=== PATIENT | female | born 1975 | race Caucasian/White ===

== ENCOUNTER 2022-05-21 08:25 | Outpatient (REF) | payer OTHER, SELFPAY ==
[2022-05-21 08:38] LABS: MANUAL DIFF FLAG NO
[2022-05-21 08:58] LABS: Basophils Absolute Auto 0.1 X10*3/uL (0.0-0.2); Basophils Percent Auto 1.3 % (0-2); Eosinophils Absolute Auto 0.1 X10*3/uL (0.0-0.4); Eosinophils Percent Auto 2.3 % (0-4); Hematocrit 40.1 % (37.0-47.0); Hemoglobin 13.5 g/dl (12.0-16.0); Imm Gran Abs Auto 0.01 X10*3/uL (0.00-0.03); Imm Gran Pct Auto 0.2 % (0.0-0.4); Lymphocytes Absolute Auto 1.7 X10*3/uL (1.2-4.9); Lymphocytes Percent Auto 31.7 % (20-40); Mean Corpuscular HGB Conc 33.7 g/dl (31.0-35.0); Mean Corpuscular Hemoglobin 29.7 pg (27.0-33.0); Mean Corpuscular Volume 88.1 fL (80.0-98.0); Mean Platelet Volume 8.7 fL (9.4-12.3); Monocytes Absolute Auto 0.5 X10*3/uL (0.1-1.2); Monocytes Percent Auto 8.8 % (2-11); Neutrophils Absolute Auto 2.9 x10*3/uL (2.0-8.3); Neutrophils Percent Auto 55.7 % (45-73); Platelet Count 302 X10*3/uL (160-400); Red Blood Count 4.55 X10*6/uL (4.20-5.50); Red Cell Distribution Width 12.6 % (11.0-16.0); White Blood Count 5.2 X10*3/uL (4.8-10.8)
[2022-05-21 09:29] LABS: Alanine Aminotransferase 18 U/L (0-31); Albumin Level 4.1 g/dL (3.5-5.0); Alkaline Phosphatase 63 U/L (39-117); Anion Gap 14 (12-20); Aspartate Amino Transferase 20 U/L (5-31); Bilirubin Total 0.5 mg/dL (0.0-1.0); Blood Urea Nitrogen 10 mg/dL (9-16); Calcium 9.4 mg/dL (8.4-10.2); Carbon Dioxide 27 mmol/L (22-29); Chloride 104 mmol/L (96-108); Cholesterol 167 mg/dL; Estimated Glomerular Filt Rate > 60; Glucose Fasting 93 mg/dL (60-99); HDL Cholesterol 49 mg/dL; LDL Cholesterol Calculated 110 mg/dl; Potassium 4.6 mmol/L (3.3-5.1); Sodium 140 mmol/L (135-145); Total Protein 7.2 g/dL (6.5-8.0); Triglycerides 44 mg/dL
[2022-05-21 09:53] LABS: TSH reflex Free T4 1.11 uIU/mL (0.32-4.0)
== END 2022-05-21 08:26 | disposition home or self-care (01) ==
LOC: HO.LAB 08:25
PROVIDERS: Visit Provider Nurse Practitioner Family
DX: Z00.00 Encounter for general adult medical examination without abnormal findings (principal)
CPT/HCPCS: 36415; 80053; 80061; 84443; 85025

== ENCOUNTER → 2022-07-13 08:22 | Outpatient (BNVA) | payer OTHER, SELFPAY | PROVIDERS: Visit Provider Internal Medicine Endocrinology, Diabetes & Metabolism | DX: E66.9 Obesity, unspecified (principal); Z68.39 Body mass index [BMI] 39.0-39.9, adult | CPT/HCPCS: 99202 ==

== ENCOUNTER → 2022-08-17 11:53 | Outpatient (BNVA) | payer OTHER, SELFPAY | PROVIDERS: PCP Nurse Practitioner Family; Visit Provider Dietitian, Registered | DX: E66.9 Obesity, unspecified (principal); Z68.41 Body mass index [BMI] 40.0-44.9, adult | CPT/HCPCS: 97802 ==

== ENCOUNTER → 2023-01-11 15:47 | Outpatient (BNVA) | payer OTHER, SELFPAY | PROVIDERS: PCP Nurse Practitioner Family; Visit Provider Internal Medicine Endocrinology, Diabetes & Metabolism | DX: E66.9 Obesity, unspecified (principal); Z68.41 Body mass index [BMI] 40.0-44.9, adult | CPT/HCPCS: 99212 ==

== ENCOUNTER → 2023-02-27 10:03 | Outpatient (BNVA) | payer OTHER, SELFPAY | PROVIDERS: Visit Provider Dietitian, Registered | DX: E66.9 Obesity, unspecified (principal); Z71.3 Dietary counseling and surveillance | CPT/HCPCS: 97803 ==

== ENCOUNTER 2023-03-19 15:38 | Outpatient (AMB) | payer OTHER, SELFPAY ==
[2023-03-19 15:54] VITALS: BP 118/70; PULSE 89; RESP 13; TEMP 37.2; O2SAT 97; BMI 41.0
--- NOTE | 2023-03-19 15:54 | A.OFFPC_ITS ---
Vital Signs 03/19/23 15:54 Height 5 ft 1 in Weight 217 lb 2 oz BMI 41.0 BP 118/70 Blood Pressure Location Lt brachial Position Sitting Respiration 13 Pulse 89 Pulse Source Pulse Oximeter Temp 98.9 F Temp Source Oral Pulse Oximetry (%) 97 Oxygen Delivery Method Room Air Intake Visit Reasons: R heel pain Intake Note: Patient is here today due to the possibility of having Achilles tendonitis of the R heal. Patient states she made this appointment about 6 weeks ago and she was in so much pain she went to the urgent care. Urgent care referred patient for physical therapy and patient reports that she is not able to get into an appointment until April. Centrifuge Operator Required: No Accompanied by: Child Allergies medical tape Adverse Reaction (Intermediate, Uncoded 03/19/23 15:58) Blister Tobacco use date assessed: 03/19/23 Dental Screening Dental Screen Date: 03/19/23 Did you have a dental visit in the last 12 months?: Yes Did you have a dental problem in the last 6 months where you did not have access to dental care?: No Was dental information given to patient?: Patient has dentist HPI R heel pain HPI Details New patient/Transfer of Care from [place] Acute issue(s): R heel pain x2 months -Sometimes she wears socks/inserts for it which provides some relief. PMHx: Depression with anxiety. 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 [place] Current occupational exposures/hazards: No Cognitive needs: No Hearing needs: No Vision needs: Yes Review of Systems Const Denies chills, Denies fatigue, Denies fever(s), Denies headache(s) and Denies weakness ENT Denies dizziness and Denies headache(s) Card Denies chest pain, Denies lightheadedness, Denies dyspnea and Denies other (Palpitations) Resp Denies cough, Denies dyspnea, Denies wheezing and Denies other ( shortness of breath) Musc Denies numbness and Denies tingling Neuro Denies dizziness, Denies headache(s), Denies numbness, Denies tingling, Denies paresthesias and Denies weakness Psych Denies anxiety and Denies depression Endo Denies fatigue Aller/Immun Denies wheezing Physical exam (Primary Care) Vital Signs: Last Vital Signs Temp 98.9 F 03/19/23 15:54 Pulse 89 03/19/23 15:54 Resp 13 03/19/23 15:54 BP 118/70 03/19/23 15:54 Pulse Ox 97 03/19/23 15:54 Oxygen Delivery Method Room Air 03/19/23 15:54 BMI result Body Mass Index 41.0 Tobacco/Smoking Status: Tobacco use Status Tobacco use date assessed 03/19/23 03/19/23 15:59 Patient Tobacco Use Status Never used Tobacco 03/19/23 15:59 e-Cigarette/Vaping Use Never Used 03/19/23 15:59 Const General: no acute distress and well developed Nutritional Appearance: obese morbidly obese Orientation/consciousness: patient oriented x3 HENMT Head: Yes normocephalic and Yes atraumatic Eyes General: appearance normal, both eyes and all related structures Pupils: Equal, round and reactive pupils present EOM: EOMs intact bilaterally Resp Effort & Inspection: normal respiratory effort Auscultation: clear to auscultation bilaterally Cardio Rate: regular rate Rhythm: regular rhythm Heart sounds: S1 normal heart sound present, S2 normal heart sound present, no gallops, no murmurs and no rubs Neuro General: patient oriented x3 and gait normal Cranial nerves: Yes Equal, round and reactive pupils present Psych Affect: normal affect Assessment and Plan Assessment & Plan (1) Pain of right heel: Code(s): M79.671 - Pain in right foot Plan: Achilles tendinitis Demonstrated gentle stretches She will see use ice/heat Using heel cup and I advised that she elevate this further Will get her a sooner appointment with physical therapy (2) Irregular periods: Code(s): N92.6 - Irregular menstruation, unspecified Plan: Possible perimenopause Check labs (3) Depression with anxiety: Code(s): F41.8 - Other specified anxiety disorders Plan: Will ask the nurse navigator to help refer her to therapist Orders: Orders PT Evaluation and Treatment Today M76.60 - Achilles tendinitis, unspecified leg Comprehensive [place]. Panel Fast Today F41.8 - Other specified anxiety disorders, Z00.00 - Encounter for general adult medical examination without abnormal findings Lutenizing Hormone Today N92.6 - Irregular menstruation, unspecified Lipid Panel Today F41.8 - Other specified anxiety disorders, Z00.00 - Encounter for general adult medical examination without abnormal findings TSH reflex Free T4 Today F41.8 - Other specified anxiety disorders, Z00.00 - Encounter for general adult medical examination without abnormal findings Microalbumin, Random (w Creat) Today F41.8 - Other specified anxiety disorders, I10 - Essential (primary) hypertension Complete Blood Count Auto Diff Today F41.8 - Other specified anxiety disorders, Z00.00 - Encounter for general adult medical examination without abnormal findings UA and rflx microscopic Today F41.8 - Other specified anxiety disorders, Z00.00 - Encounter for general adult medical examination without abnormal findings Follicle Stimulating Hormone Today N92.6 - Irregular menstruation, unspecified Referrals Nurse Navigator Referral F41.8 - Other specified anxiety disorders Medications: Discontinued semaglutide (weight loss) (Elizabeth) administer weeks 1 through 4 of therapy Discontinued Reason: Patient no longer taking 0.25 mg (0.5 mL) subcut QWEEK 2 mL 4RF Coding Level of Care Code Est Pt Level 4 (36442) Diagnoses Pain of right heel M79.671 Irregular periods N92.6 Depression with anxiety F41.8
== END 2023-03-19 17:02 | disposition home or self-care (01) ==
PROVIDERS: Visit Provider Family Medicine
DX: M79.671 Pain in right foot (principal); N92.6 Irregular menstruation, unspecified; F41.8 Other specified anxiety disorders
CPT/HCPCS: 99214

== ENCOUNTER 2023-04-01 09:28 | Outpatient (REF) | payer OTHER, SELFPAY ==
[2023-04-01 11:12] LABS: MANUAL DIFF FLAG NO
[2023-04-01 11:51] LABS: Appearance Urine Clear; Color Urine Yellow; Glucose Urine UA Negative (Negative); Leukocyte Esterase Urine Trace (Negative); Nitrite Urine Negative (Negative); Specific Gravity - Urine 1.015 (1.005-1.025); UMIC TRIGGER UA YES; Urine Blood Large (3+) (Negative); Urine Ketones Negative (Negative); Urine Protein Trace mg/dL (Neg-Trace)
[2023-04-01 11:57] LABS: Bacteria Urine 1+ (None Seen); Basophils Absolute Auto 0.1 X10*3/uL (0.0-0.2); Basophils Percent Auto 0.6 % (0-2); Eosinophils Absolute Auto 0.2 X10*3/uL (0.0-0.4); Eosinophils Percent Auto 2.8 % (0-4); Hematocrit 41.5 % (37.0-47.0); Hemoglobin 13.7 g/dl (12.0-16.0); Hyaline Casts Urine 0-2 /LPF (0-2); Imm Gran Abs Auto 0.01 X10*3/uL (0.00-0.03); Imm Gran Pct Auto 0.1 % (0.0-0.4); Lymphocytes Absolute Auto 2.2 X10*3/uL (1.2-4.9); Mean Corpuscular Hemoglobin 29.5 pg (27.0-33.0); Mean Corpuscular Volume 89.2 fL (80.0-98.0); Mean Platelet Volume 9.1 fL (9.4-12.3); Monocytes Absolute Auto 0.5 X10*3/uL (0.1-1.2); Monocytes Percent Auto 6.6 % (2-11); Neutrophils Absolute Auto 4.7 x10*3/uL (2.0-8.3); Neutrophils Percent Auto 60.9 % (45-73); Platelet Count 281 X10*3/uL (160-400); RBC Urine >20 /HPF (0-2); Red Blood Count 4.65 X10*6/uL (4.20-5.50); Red Cell Distribution Width 12.7 % (11.0-16.0); White Blood Count 7.7 X10*3/uL (4.8-10.8)
[2023-04-01 13:09] LABS: Creatinine Urine 101.23 mg/dL; Microalbum/Creatinine Ratio Ur 31.6 ug/mg cr
[2023-04-01 14:15] LABS: Alanine Aminotransferase 13 U/L (0-31); Albumin Level 4.1 g/dL (3.5-5.0); Alkaline Phosphatase 69 U/L (39-117); Anion Gap 15 (12-20); Aspartate Amino Transferase 16 U/L (5-31); Bilirubin Total 0.5 mg/dL (0.0-1.0); Blood Urea Nitrogen 7 mg/dL (9-16); Calcium 9.3 mg/dL (8.4-10.2); Carbon Dioxide 22 mmol/L (22-29); Chloride 108 mmol/L (96-108); Cholesterol 164 mg/dL; Estimated Glomerular Filt Rate > 60; Glucose Fasting 81 mg/dL (60-99); HDL Cholesterol 44 mg/dL; LDL Cholesterol Calculated 103 mg/dl; Potassium 4.8 mmol/L (3.3-5.1); Sodium 140 mmol/L (135-145); Total Protein 7.5 g/dL (6.5-8.0); Triglycerides 86 mg/dL
[2023-04-01 14:26] LABS: TSH reflex Free T4 1.69 uIU/mL (0.32-4.0)
[2023-04-02 19:53] LABS: Follicle Stimulating Hormone 8.2 mIU/mL; Lutenizing Hormone 2.9 mIU/mL
[2023-04-02 23:23] LABS: Lyme Abs Screen <0.90 index
== END 2023-04-01 09:29 | disposition home or self-care (01) ==
LOC: HO.WFDLDS 09:28
PROVIDERS: Visit Provider Family Medicine
DX: Z00.00 Encounter for general adult medical examination without abnormal findings (principal); F41.8 Other specified anxiety disorders; M25.40 Effusion, unspecified joint; N92.6 Irregular menstruation, unspecified; I10 Essential (primary) hypertension
CPT/HCPCS: 36415; 80053; 80061; 81001; 82043; 83001; 83002; 84443; 85025; 86617; 86618

== ENCOUNTER 2023-05-13 07:00 | Outpatient (RCR) | payer OTHER, SELFPAY ==
--- NOTE | 2023-04-02 13:30 | MHC.PT.EP ---
[facility] [place] Office [place] Office [place] Office [address] Hattie Bustillos [address] [phone] F: [phone] F: [phone] F: [phone] F: [phone] Physical Therapy Plan of Care Date of Evaluation: Date of Surgery: Diagnosis: M76.60 Achilles tendinitis, unspecified leg date of script 03/19/[address] Beard Assessment: Pt is a RHD 47 y/o female, referred to PT for treatment of M76.60 Achilles tendinitis, unspecified leg date of script 03/19/[address] Beard. Pt expressing R > L sided onset which has been present since December>December of 2022 gradual onset following change of footwear>activity level. Pt is obese, expresses intolerance for prolonged walking, descending stairs (step to pattern), and driving due to sx in R achilles tendon. Pt expressing L LE sx have slowly started. Pt exhibits too many toes sign, weakness of core/hip abductors, decreased strength of R quadriceps, and tight gastroc>soleus complex. Poor SLS stability on the R LE> L LE. Pt is TTP R achilles insertion and bulbous tissue bulk R medially> L laterally achilles, (L LE less so). Pt exhibits bilateral LE L>R ankle edema, impaired tolerance for R SLS, decreased ability to perform an I heel raise, and impaired functional mobility for walking, stairs, and exercise participation. 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 Pt expresses she usually enjoys walking but has not been back to normal regular exercise regimen since the pandemic, slowly stopping due to ankle sx in the spring. Pt expressing she is had labs drawn during her routine physical to address concerns for recent weight gains/LE edema (family hx HTN and family hx heart disease). Of note: pt noted to become tearful/emotional at end of session due to level of frustration in regard to her sx/status. She was issued a written HEP, given education post eval, given a trial application of ROCKTAPE application to aide in low grade support/stretch to trial prior to next session. She was encouraged that therapy should aide in improvement of her symptoms and she appears to be an excellent candidate. Pt will be seen at a frequency of 2x/week x 4 weeks to meet listed goals below. Frequency and Duration: The patient will be seen 2x/week x 4 weeks Short Term Goals: 1. Pt will demonstrate R AROM DF stretch to 10 degrees. 2. Pt will demonstrate initiation of home program. 3. Pt will demonstrate improved strength R SLR (IR: fair quad control). 4. Pt will demonstrate strength hip abd 5/5. (IR: 5. Walking program 30 minutes daily with sx <3/10 R achilles as a start to get back to exercise). Clerical Aide Teacher Goals: 1. Resume walking 2 miles with sx <2/10 R>L achilles. 2. I HEP for strength/core/LE program. 3. Descend a flight of 8 inch stairs reciprocally. 4. Strength hip abd 5/5 B. 5. Rise from kneeling with no hesitation for R>L LE sx. 6. Resume dance/carla MOD I R>L LE. Treatment Plan: Modalities to reduce pain, spasms and effusion. Manual therapy to restore motion and function. Therapeutic exercise to improve strength and flexibility. Neuromuscular re-education for posture and balance. Therapeutic activities to return to functional activities of daily living. Electronically signed by: Please sign and return to therapist. Thank you for your referral.
== END 2023-10-01 13:07 | disposition home or self-care (01) ==
LOC: HO.PTWFD 07:00
PROVIDERS: PCP Family Medicine; Visit Provider Family Medicine
DX: M76.61 Achilles tendinitis, right leg (principal)
CPT/HCPCS: 97035; 97110; 97140; 97150; 97161; 97535

== ENCOUNTER 2023-05-31 13:53 | Outpatient (AMB) | payer OTHER, SELFPAY ==
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
[2023-05-31 13:59] VITALS: BP 120/68; PULSE 81; O2SAT 99; BMI 408.8
== END 2023-05-31 14:49 | disposition home or self-care (01) ==
PROVIDERS: PCP Family Medicine; Visit Provider Family Medicine
DX: Z00.00 Encounter for general adult medical examination without abnormal findings (principal); R82.90 Unspecified abnormal findings in urine; E66.9 Obesity, unspecified; Z68.41 Body mass index [BMI] 40.0-44.9, adult; N92.6 Irregular menstruation, unspecified; R31.9 Hematuria, unspecified; M67.88 Other specified disorders of synovium and tendon, other site; K59.00 Constipation, unspecified
CPT/HCPCS: 99396

== ENCOUNTER 2023-06-27 15:50 | Outpatient (REF) | payer OTHER, SELFPAY ==
--- NOTE | ~2023-06-27 | MM_ITS ---
EXAMINATION: MM SCREENING DIGITAL BREAST TOMOSYNTHESIS, BILATERAL CLINICAL INFORMATION: Screening. Asymptomatic. COMPARISON: Mammography: This is a baseline study. TECHNIQUE: Digital breast tomosynthesis is performed in both the craniocaudal and mediolateral oblique views along with computer-aided detection (CAD). Synthesized 2D images are generated from the tomosynthesis. FINDINGS: There are scattered areas of fibroglandular density (ACR BI-RADS breast composition Category b). There are no significant masses, abnormal calcifications, or other abnormalities. MM/MM tomosynthesis screening BI IMPRESSION: No mammographic evidence of malignancy. ASSESSMENT: BI-RADS BI-RADS 1 - Negative RECOMMENDATION: Routine annual mammography screening. 1 year F/U This examination should not preclude the clinical evaluation of a suspicious palpable abnormality. This patient's information was entered into a reminder system with a target due date for their next mammogram.
== END 2023-06-27 15:51 | disposition home or self-care (01) ==
LOC: HO.MAMMO 15:50
PROVIDERS: Visit Provider Family Medicine
DX: Z12.31 Encounter for screening mammogram for malignant neoplasm of breast (principal)
CPT/HCPCS: 77063; 77067

== ENCOUNTER → 2023-06-27 16:00 | Outpatient (BNV) | payer OTHER, SELFPAY | PROVIDERS: Visit Provider Radiology Diagnostic Radiology | DX: Z12.31 Encounter for screening mammogram for malignant neoplasm of breast (principal) | CPT/HCPCS: 77063; 77067 ==

== ENCOUNTER 2023-07-09 15:44 | Outpatient (AMB) | payer OTHER, SELFPAY ==
--- NOTE | 2023-07-09 15:47 | A.OFFVIS_ITS ---
Intake Vital Signs 07/09/23 15:48 Height 5 ft 1 in Weight 218 lb 11.177 oz BMI 41.3 BP 118/78 Blood Pressure Location Lt brachial Position Sitting Pulse 88 Pulse Source Pulse Oximeter Intake Visit Reasons: f/up obesity Intake Note: Patient present for Obesity follow up visit. Welding Inspector Required: No Accompanied by: Self / Same As Patient Allergies medical tape Adverse Reaction (Intermediate, Uncoded 05/31/23 14:03) Blister Medication List - Last Reconciled 07/09/23 by Arnol Hernández MD melatonin 5 mg PO BEDTIME PRN meloxicam 15 mg PO DAILY 30 days HPI HPI Comments History of Present Illness Details This is a 46-year-old female referred to endocrinology for obesity. Pt states weight gain gradual inability to lose wt. . She has used Noom and plateued , wt watchers. diets. Has tried no wt loss meds.Not seen stockroom coordinator in past 5 yrs. She denies hx of sleep apnea. Denies sx of Epi's Syndrome Menses less frqently without hot flashes . No hx of thyroid problems . Does not want bariatric surgery . 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 There is no clear endocrine etiology behind the patient's obesity. Plan is to Start Mounjaro 2.5 mg . Patient is aware this is off-label use for obesity. We went over potential side effects including nausea, vomiting and rare risk of pancreatitis. Also recommended structured weight loss clinic in [place] [facility]. Lastly also suggested possible use of Plenity. Mounjaro 2.5 mg samples given the patient lot number [id number] C expiration date 01/06/2025 Coding Level of Care Code Est Pt Level 3 (16563) Diagnoses Obesity E66.9
[2023-07-09 15:48] VITALS: BP 118/78; PULSE 88; BMI 41.3
== END 2023-07-09 16:40 | disposition home or self-care (01) ==
PROVIDERS: Visit Provider Internal Medicine Endocrinology, Diabetes & Metabolism
DX: E66.9 Obesity, unspecified (principal)
CPT/HCPCS: 99213

== ENCOUNTER → 2023-07-09 15:44 | Outpatient (BNVA) | payer OTHER, SELFPAY | PROVIDERS: Visit Provider Internal Medicine Endocrinology, Diabetes & Metabolism | DX: E66.9 Obesity, unspecified (principal); Z68.41 Body mass index [BMI] 40.0-44.9, adult | CPT/HCPCS: 99212 ==

== ENCOUNTER 2023-07-10 09:56 | Outpatient (REF) | payer OTHER, SELFPAY ==
--- NOTE | ~2023-07-10 | XR_ITS ---
EXAMINATION: XR ANKLE, RIGHT CLINICAL INFORMATION: Pain in right ankle and joints right foot. COMPARISON: None available. TECHNIQUE: AP, lateral, and mortise views of the right ankle. FINDINGS: Joint effusion. Diffuse soft tissue swelling, more prominent along the lateral aspect of the ankle. Small dorsal calcaneal spur. Faint calcific/ossific density along the posterior aspect of the talus on the lateral view of indeterminate age and etiology. Alignment preserved. XR/XR ankle RT min 3V IMPRESSION: Joint effusion. Diffuse soft tissue swelling, more prominent along the lateral aspect of the ankle. Faint calcific/ossific density along the posterior aspect of the talus on the lateral view of indeterminate age and etiology. Recommend follow-up imaging in 10-14 days if fracture is suspected. Dedicated views of the foot recommended for further evaluation.
== END 2023-07-10 09:57 | disposition home or self-care (01) ==
LOC: HO.HOSX 09:56
PROVIDERS: Visit Provider Physician Assistant
DX: M76.61 Achilles tendinitis, right leg (principal)
CPT/HCPCS: 73610; 99202

== ENCOUNTER 2023-07-10 15:10 | Outpatient (AMB) | payer OTHER, SELFPAY ==
--- NOTE | 2023-07-10 15:18 | A.OFFVIS_ITS ---
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 Patient reports noticing her pain in December of 2022, while at work during recess time. Her soreness was then followed by severe pain. She was seen at urgent care where she was given stretches to do. She also attended PT which did help however she continues to have pain and swelling. Currently wears shoe inserts and compression socks that seem to provide some relief. 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 She was seen at urgent care where she was given stretches to perform. She currently states she has pain and swelling in her Achilles which is aggravated with leg overuse and stair use. She had undergone physical therapy for her pain in the past. She is wearing shoe inserts and compressions socks which provide her mild relief. She is currently working which requires her to stand on her feet all day. 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 [place] Current occupational exposures/hazards: No Cognitive needs: No Hearing needs: No Vision needs: Yes Review of Systems Const All systems reviewed & are unremarkable except as noted in HPI and below Physical Exam Vital Signs: BMI result Body Mass Index 41.2 Const General: cooperative, healthy appearing, comfortable, no acute distress, well developed and alert Orientation/consciousness: patient oriented x3 HEENT Head: Yes normal to inspection, Yes normocephalic and Yes atraumatic Eyes General: appearance normal, both eyes and all related structures Resp Effort & Inspection: normal respiratory effort and able to speak in complete sentences Cardio Rate: regular rate Peripheral pulses: Peripheral pulses 2+ throughout GI Palpation (GI): Soft to palpation Skin Lesions: no lesions Rashes: no rashes Neuro General: patient oriented x3 Extrem Other: Right ankle: Normal to inspection. She does have significant tenderness over the Achilles tendon with palpable mass. She can planter flex and dorsi flex without pain. No deformity along the body of the achilles tendon, negative sharp. NVI. Results Reviewed Results Reviewed: Xrays were obtained in the office today and personally reviewed by me of the right ankle negative for bony abnormalities Assessment & Plan Assessment & Plan (1) Achilles tendinitis, right leg: Code(s): M76.61 - Achilles tendinitis, right leg Plan An MRI of right ankle has been ordered to further evaluate the integrity of the Achilles tendon. She was given a tall walking boot weight bearing as tolerated to help unload the tendon to help with resting. She was also given a work note to avoid any type of impact activities or running until I see her back for an MRI. Orders: Orders XR ankle RT min 3V 07/10/23 M25.571 - Pain in right ankle and joints of right foot MR ankle RT wo con 07/10/23 M76.61 - Achilles tendinitis, right leg Patient Instructions: Scribed for Jossy Cabrera PA-C, by Lorenzo Scrhader medical delivery technician, on 07/10/2023 at 3:00 PM EST. I, Jossy Cabrera PA-C, have personally reviewed and agree with the information entered by the scribe. Coding Level of Care Code New Pt Level 3 (23424) Diagnoses Achilles tendinitis, right leg M76.61
[2023-07-10 15:28] VITALS: BMI 41.2
== END 2023-07-10 15:54 | disposition home or self-care (01) ==
PROVIDERS: PCP Family Medicine; Visit Provider Physician Assistant
DX: M76.61 Achilles tendinitis, right leg (principal)
CPT/HCPCS: 99203

== ENCOUNTER 2023-07-12 09:59 | Outpatient (AMB) | payer OTHER, SELFPAY ==
--- NOTE | 2023-07-12 10:11 | A.OFFVIS_ITS ---
Intake VS Expanded 07/12/23 10:12 Height 5 ft 1 in Weight 216 lb 7.903 oz BMI 40.9 Intake Visit Reasons: Obesity/LVM Allergies medical tape Adverse Reaction (Intermediate, Uncoded 07/10/23 15:23) Blister HPI Nutrition Presentation Details Pt presents for MNT for obesity Pt reports challenges with meal planning and stress eating. Pt declined referral to mental health to discuss stress management and reports she is looking for a therapist. Meal routine , working on choosing natural foods and makin home made recipes (cinnamon bread and similar foods) fast food , med caramel latte split pea soup and pizza candy Most Recent Diabetes Results: Microalb/Creat Ratio 31.6 ug/mg cr 04/01/23 Cholesterol 164 mg/dL 04/01/23 HDL Cholesterol 44 mg/dL 04/01/23 Triglycerides 86 mg/dL 04/01/23 Creatinine 0.78 mg/dL (0.5-1.4) 04/01/23 Blood Urea Nitrogen 7 mg/dL (9-16) L 04/01/23 Sodium 140 mmol/L (135-145) 04/01/23 Potassium 4.8 mmol/L (3.3-5.1) 04/01/23 Chloride 108 mmol/L (96-108) 04/01/23 Carbon Dioxide 22 mmol/L (22-29) 04/01/23 Calcium 9.3 mg/dL (8.4-10.2) 04/01/23 AST 16 U/L (5-31) 04/01/23 ALT 13 U/L (0-31) 04/01/23 Total Protein 7.5 g/dL (6.5-8.0) 04/01/23 Albumin 4.1 g/dL (3.5-5.0) 04/01/23 PFSH Surgical History Hx of cholecystectomy Hx of section Family History Mother Lung cancer Father Diabetes Heart disease Social History Household Members: Spouse and Children Housing: Apartment Alcohol intake: current Patient Tobacco Use Status: Never used Tobacco e-Cigarette/Vaping Use: Never Used service: No Current occupational status: employed 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 Used wt : 96 kg(08/2022), 98 kg (01/2023) 98 kg (07/2023) Est kcal as per MSJ: 1850 (40% carb, 30% fat/prot) Est fluid needs: 2409 ml/d (25 ml/kg bw) Rec fiber: increase to 8-10 g per day and gradually increase to 25 g/d or as tolerated Rec Na: < 2000 mg /d Educate patient on: (R= Reviewed, V = verbalizes understanding N/R= Needs review N/A= not applicable) * Food sources of carbohydrates and serving adequate serving sizes : R , V * Difference between complex carbohydrates and simple carbohydrates, role of fiber: R, V * Differences between fats (MUFA/PUFA/saturated fats, trans fats) and food sources of various fats: NR * Food sources of sodium and salt and healthy modifications for heart health and kidney health: R N/R * Vitamins and minerals: N/R * How to interpret food labels: N/R * Healthy Plate method concept: R V * Caloric content of foods: R * Physical activity: benefits and precaution: R V * mindful eating strategies R Patient Instructions: Reduce on the snack to 2 a day no more than 20 g of carbs , choose an apple plain with cinnamon added or with 1/2 tbsp of peanut butter Read labels and compare carb/calories :choose less than 20 g carbs and less than 100 calories Keep physically active as able/medically cleared, walking goal 30 minutes 3 times a week or 150 minutes per week Coding Level of Care Code Nutr Indiv Subseq (11868) Diagnoses Obesity E66.9 Time Spent (min) 30
[2023-07-12 10:12] VITALS: BMI 40.9
== END 2023-07-12 11:14 | disposition home or self-care (01) ==
PROVIDERS: PCP Family Medicine; Visit Provider Dietitian, Registered
DX: E66.9 Obesity, unspecified (principal)

== ENCOUNTER → 2023-07-12 09:59 | Outpatient (BNVA) | payer OTHER, SELFPAY | PROVIDERS: Visit Provider Dietitian, Registered | DX: E66.9 Obesity, unspecified (principal); Z68.41 Body mass index [BMI] 40.0-44.9, adult | CPT/HCPCS: 97803 ==

== ENCOUNTER 2023-07-30 18:13 | Outpatient (REF) | payer OTHER, SELFPAY ==
--- NOTE | ~2023-07-30 | MR_ITS ---
EXAMINATION: MR ANKLE WITHOUT CONTRAST, RIGHT CLINICAL INFORMATION: Right ankle pain and swelling. Heel lump. Achilles tendinitis. COMPARISON: Right ankle radiographs dated 07/10/2023. TECHNIQUE: MRI of the ankle was performed using routine sequences on a high-field scanner. FINDINGS: BONE AND ARTICULAR CARTILAGE: Mild bony prominence at the dorsal aspect of the posterior calcaneus with a small dorsal calcaneal spur. No associated marrow edema. No acute fracture or dislocation. Mild degenerative cystic change within the posterior aspect of the lateral malleolus. No talar osteochondral lesion. ACHILLES TENDON: Thickening of the distal Achilles tendon with mildly increased T2 signal, consistent with chronic tendinosis. No measurable tear. OTHER TENDONS: Flattening/longitudinal split tearing of the peroneal brevis tendon at the level of the lateral malleolus measuring up to 2.9 cm in craniocaudal dimension, consistent with longitudinal partial tearing. Small amount of fluid within the posterior tibialis tendon sheath consistent with mild tenosynovitis. LIGAMENTS: Heterogeneity of the anterior and posterior talofibular ligaments consistent with remote sprain/partial tears. No evidence of acute ligament injury. JOINT FLUID AND SOFT TISSUES: Small amount of fluid within the retrocalcaneal bursa, consistent with minimal bursitis. Synovial recess versus ganglion cyst along the lateral aspect of the talonavicular joint measuring up to 1.5 cm in AP dimension. PLANTAR FASCIA: Intact. SINUS TARSI AND TARSAL TUNNEL: Patent. MR/MR ankle RT wo con IMPRESSION: 1. Bony prominence at the dorsal aspect of the posterior calcaneus with a small dorsal calcaneal spur. Mild distal Achilles tendinosis without a measurable tear. Minimal retrocalcaneal bursitis. 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 2. Longitudinal split tearing of the peroneal brevis tendon at the level of the lateral malleolus measuring up to 2.9 cm in craniocaudal dimension. Mild posterior tibialis tenosynovitis. 3. Remote sprain/partial tears of the anterior and posterior talofibular ligaments. No evidence of acute ligament injury. 4. Synovial recess versus ganglion cyst along the lateral aspect of the talonavicular joint measuring up to 1.5 cm.
== END 2023-07-30 18:14 | disposition home or self-care (01) ==
LOC: HO.MRI 18:13
PROVIDERS: Visit Provider Physician Assistant
DX: M76.61 Achilles tendinitis, right leg (principal)
CPT/HCPCS: 73721

== ENCOUNTER 2023-08-09 12:04 | Outpatient (AMB) | payer OTHER, SELFPAY ==
--- NOTE | 2023-08-09 11:57 | MHC.OFFVIS ---
Intake Intake Visit Reasons: tele- MRI Ankle RT review Allergies medical tape Adverse Reaction (Intermediate, Uncoded 07/10/23 15:23) Blister HPI tele- MRI Ankle RT review HPI Details Patient presents for telehealth visit right ankle MRI review. She states the right ankle is ok, she does have some occassional pain with walking. She has been using the boot, which helps the swelling , but not the pain [facility] Medical History (Updated 08/13/23 @ 06:14 by Jossy Cabrera PA-C) Ladarius's deformity of right heel Right ankle tendonitis Surgical History Hx of cholecystectomy Hx of section Family History Mother Lung cancer Father Diabetes Heart disease Social History Household Members: Spouse and Children Housing: Apartment Alcohol intake: current Patient Tobacco Use Status: Never used Tobacco e-Cigarette/Vaping Use: Never Used service: No Current occupational status: employed 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 Bony prominence at the dorsal aspect of the posterior calcaneus with a small dorsal calcaneal spur. Mild distal Achilles tendinosis without a measurable tear. Minimal retrocalcaneal bursitis. 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 2. Longitudinal split tearing of the peroneal brevis tendon at the level of the lateral malleolus measuring up to 2.9 cm in craniocaudal dimension. Mild posterior tibialis tenosynovitis. 3. Remote sprain/partial tears of the anterior and posterior talofibular ligaments. No evidence of acute ligament injury. 4. Synovial recess versus ganglion cyst along the lateral aspect of the talonavicular joint measuring up to 1.5 cm. 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 She will proceed with PT and NSAIDs. A referral has been placed to a foot and ankle specialist incase symptoms persist, she will f/u in our office prn. 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, right ankle Referrals Orthopedics Referral M92.61 - Juvenile osteochondrosis of tarsus, right ankle, M77.51 - Other enthesopathy of right foot and ankle, M76.61 - Achilles tendinitis, right leg Telehealth Telehealth Location of provider rendering services: practice address Location of patient: address on file Patient Identification confirmed using: Name, : Yes Telehealth method: voice only Patient verbally consented to treatment: Yes Patient verbally consented to billing insurance company: Yes Patient informed of any privacy concerns related to visit: Yes Minutes spent on Phone/Video with Pt.: 10 Coding Level of Care Code Tele Est Pt Level 3 (34666) Diagnoses Achilles tendinitis, right leg M76.61 Right ankle tendonitis M77.51 Ladarius's deformity of right heel M92.61
== END 2023-08-09 12:45 | disposition home or self-care (01) ==
LOC: HO.HOS 12:04
PROVIDERS: Visit Provider Physician Assistant
DX: M76.61 Achilles tendinitis, right leg (principal); M77.51 Other enthesopathy of right foot and ankle; M92.61 Juvenile osteochondrosis of tarsus, right ankle
CPT/HCPCS: 99213

== ENCOUNTER → 2023-08-09 12:04 | Outpatient (BNVA) | payer OTHER, SELFPAY | PROVIDERS: Visit Provider Physician Assistant ==

== ENCOUNTER 2023-09-04 15:43 | Outpatient (AMB) | payer OTHER, SELFPAY ==
[2023-09-04 16:17] VITALS: BP 115/66; PULSE 77; O2SAT 97; BMI 38.7
--- NOTE | 2023-09-04 16:17 | MHC.PC.OV ---
Vital Signs 09/04/23 16:17 Height 5 ft 1 in Weight 205 lb BMI 38.7 BP 115/66 Blood Pressure Location Lt brachial Position Sitting Pulse 77 Pulse Source Pulse Oximeter Pulse Oximetry (%) 97 Oxygen Delivery Method Room Air Intake Visit Reasons: f/u chronic conditions Intake Note: Patient is here for follow up on chronic conditions. Allergies medical tape Adverse Reaction (Intermediate, Uncoded 09/04/23 16:18) Blister Tobacco use date assessed: 09/04/23 HPI f/u chronic conditions HPI Details 47 y/o female presents to f/u chronic conditions. Reviewing screening for breast cancer and reviewing repeat urinalysis. Urine study had RBCs and WBCs as well as high protein. Mammogram was fine. Dr. Hernández had started her on Mounjaro for weight and reports this has been working well for her. 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 Arnol Forbes, Stacia Jauregui, Randall Long and colleagues, with an educational eleazar from [employer]. Physical exam (Primary Care) Vital Signs: Last Vital Signs Pulse 77 09/04/23 16:17 BP 115/66 09/04/23 16:17 Pulse Ox 97 09/04/23 16:17 Oxygen Delivery Method Room Air 09/04/23 16:17 BMI result Body Mass Index 38.7 Tobacco/Smoking Status: Tobacco use Status Tobacco use date assessed 09/04/23 09/04/23 16:20 Patient Tobacco Use Status Never used Tobacco 09/04/23 16:20 e-Cigarette/Vaping Use Never Used 09/04/23 16:20 Assessment and Plan Assessment & Plan (1) Achilles tendinitis, right leg: Code(s): M76.61 - Achilles tendinitis, right leg Plan: Ongoing?right?lower?leg?and?ankle?tendinitis. Continue?physical?therapy?and?follow-up?with?Ortho[facility]sports?specialist[facility]at[facility]. Continue?work?restrictions; modified?recess?in?no?running x 4 wks. Will?follow-up?with?her?in?4?weeks (2) Breast cancer screening by mammogram: Code(s): Z12.31 - Encounter for screening mammogram for malignant neoplasm of breast Plan: Mammogram?negative?for?malignancy.??Will?continue?annual?screening (3) Hematuria: Code(s): R31.9 - Hematuria, unspecified Plan: Following?up?on?urinalysis?which?was?abnormal?at?prior?Check?but?patient?notes?that?this?was?on?day?1?of?her?menstruation. Repeating?UA (4) Obesity: Code(s): E66.9 - Obesity, unspecified Plan: Endocrine?started?her?on?Mounjaro?and?she?has?lost?about?11?lb.??She?is?quite?happy?with?the?improvement. Follow-up?with?Endocrine?as?recommended Coding Level of Care Code Est Pt Level 4 (99564) Diagnoses Achilles tendinitis, right leg M76.61 Breast cancer screening by mammogram Z12.31 Hematuria R31.9 Obesity E66.9
== END 2023-09-04 17:11 | disposition home or self-care (01) ==
PROVIDERS: Visit Provider Family Medicine
DX: M76.61 Achilles tendinitis, right leg (principal); Z12.31 Encounter for screening mammogram for malignant neoplasm of breast; E66.9 Obesity, unspecified; Z68.38 Body mass index [BMI] 38.0-38.9, adult; R31.9 Hematuria, unspecified
CPT/HCPCS: 99214

== ENCOUNTER 2023-09-04 17:03 | Outpatient (REF) | payer OTHER, SELFPAY | END 2023-09-04 17:04 | disposition home or self-care (01) | LOC: HO.LAB 17:03 | PROVIDERS: Visit Provider Family Medicine | DX: Z00.00 Encounter for general adult medical examination without abnormal findings (principal); R82.90 Unspecified abnormal findings in urine; I10 Essential (primary) hypertension; E66.9 Obesity, unspecified | CPT/HCPCS: 81003; 82043; 82570 ==

== ENCOUNTER 2023-09-24 13:11 | Outpatient (AMB) | payer OTHER, SELFPAY ==
[2023-09-24 13:13] VITALS: BP 122/74; BMI 37.8
--- NOTE | 2023-09-24 13:13 | A.OFFVIS_ITS ---
Intake Vital Signs 09/24/23 13:13 Height 5 ft 1 in Weight 200 lb BMI 37.8 BP 122/74 Intake Visit Reasons: New patient Annual Area Captain Required: No Information Interpreted: clinical only Biology Specimen Technician: Biology Specimen Technician Present Allergies medical tape Adverse Reaction (Intermediate, Uncoded 09/24/23 13:13) Blister Medication List - Last Reconciled 09/24/23 by Mary Bernstein CNM melatonin 5 mg PO BEDTIME PRN meloxicam 15 mg PO DAILY 30 days tirzepatide (weight loss) (Zepbound) 2.5 mg (0.5 mL) subcut QWEEK 4 weeks Is last menstrual period known: Yes Last menstrual period: 09/19/23 Do you need a note to return to daycare/school/sports/work: No HPI New patient Annual HPI Details 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 She has previously been in several other states out [place]. It has been a few years. She has a history of infertility and had infertility services in order to get and had a primary after failed attempt at induction. She says she has known fibroids she has had some irregular and late periods so she was concerned about pre menopause and was wondering about PCOS or any other reason that could explain it. Mostly her periods are regular she does track and keep track of them so when she is late with a. She takes notice and she sought care to be sure that she was not . She is not contraceptive thing because of the years of infertility and a presumption that if she did get she would probably just have a miscarriage at this point as that is what happened before her successful . She recently started on monjaro for weight loss after question of pre diabetes, though she says her numbers were good. She feels like it is helping her immensely and that it just takes the constant craving and thinking about food away and she feels like she is seeing food as fuel now. 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 [place] Current occupational exposures/hazards: No Cognitive needs: No Hearing needs: No Vision needs: Yes Female Reproductive History Menstrual Age of Menarche: 13 Duration of menses: 3-5 days Date of last menstrual period: 09/19/23 control method: none Total pregnancies: 4 Full term: 1 Date of last pap smear: 09/02/18 (per patient''negative'') History of abnormal pap smear: Yes (unknown date ?) Physical Exam Const General: healthy appearing, comfortable, no acute distress, well developed and alert Nutritional Appearance: average body habitus Orientation/consciousness: patient oriented x3 Limitations: no limitations HEENT Head: Yes normocephalic Neck Neck: Yes normal visual inspection Chest Chest palpation & inspection: normal inspection of the chest Breast/axilla inspection: normal inspection of the breasts and normal inspection of the axillae Breast/axilla palpation: normal palpation of the breasts and normal palpation of the axillae Resp Effort & Inspection: normal respiratory effort GI Inspection: Yes normal to inspection, No Abdominal wall edema and No distended Palpation (GI): Soft to palpation and nontender Other: Cervix nulliparous bled with Cytobrush cervix tightly closed nabothian cysts noted patient initially tender as Q-tip touch nabothian cyst but it dissipated. Cervix mobile nontender difficult to feel uterus adnexa nontender not enlarged good tone with Kegel. General: Yes bladder normal to palpation External Female Exam: normal external appearance and normal appearance of the urethra Speculum Exam - Vagina: normal appearance of the vagina, normal palpation and normal vaginal discharge Speculum Exam - Cervix: normal appearance of the cervix, normal palpation and nontender Bimanual exam- vagina & uterus: normal bimanual exam, normal palpation, uterine size normal, bladder normal to palpation, consistency normal, normal palpation, uterine mobility normal, uterine shape normal, No Cervical tenderness present, non-tender and no cervical motion tenderness Bimanual Exam- Adnexa, other: normal adnexae, no masses, normal and No adnexal tenderness Neuro General: patient oriented x3 Assessment & Plan Assessment & Plan (1) Screening for cervical cancer: Code(s): Z12.4 - Encounter for screening for malignant neoplasm of cervix (2) History of irregular menstrual cycles: Code(s): Z87.42 - Personal history of other diseases of the female genital tract (3) History of uterine fibroid: Code(s): Z86.018 - Personal history of other benign neoplasm (4) Perimenopause: Code(s): N95.1 - Menopausal and female climacteric states (5) Well woman exam with routine gynecological exam: Code(s): Z01.419 - Encounter for gynecological examination (general) (routine) without abnormal findings Plan -----Discussed in this visit the following: healthy balanced diet, regular and consistent exercise, getting recommended health screens, doing the best she can for her particular health concerns, kegel exercises, pap smear screening and fo llowup recommendations, mammography screening and SBE, normal changes in cycles in her life stage--- .-I reviewed with the patient, all of the currently common used methods of control that are available. We reviewed how they work in the body, how they are taken, common side effects, uncommon side effects, precautions, and contraindications. -Discussed also factors that influence their effectiveness and use, and womens satisfaction with the method. -Discussed how each are used, and drawbacks of each method as well. -Methods covered included: condoms, control pills, combination and progestin only,, Depo-Provera, Nexplanon, Mirena and Kyleena IUDs, and ParaGard IUDs. Also I discussed fertility awareness since her signs and symptoms and that she could augment her efforts with that. Discussed her history of infertility and fibroid and her question as to whether not she might have had PCOS in some ways it might be an academic question at this point but it might be worthwhile investigating with an ultrasound to at least assess whether not there is anything going on with the fibroids and is there any evidence of anything in her ovaries. We will have a visit afterwards to review the findings. In the meantime she is continuing her excellent self- care she is up-to-date on her mammograms and had 1 it just a couple of months ago. Orders: Orders CT NG by PCR Today N95.1 - Menopausal and female climacteric states, Z01.419 - Encounter for gynecological examination (general) (routine) without abnormal findings, Z12.4 - Encounter for screening for malignant neoplasm of cervix, Z86.018 - Personal history of other benign neoplasm, Z87.42 - Personal history of other diseases of the female genital tract Bacterial Vaginosis Panel Today N95.1 - Menopausal and female climacteric states, Z01.419 - Encounter for gynecological examination (general) (routine) without abnormal findings, Z12.4 - Encounter for screening for malignant neoplasm of cervix, Z20.2 - Contact with and (suspected) exposure to infections with a predominantly sexual mode of transmission, Z86.018 - Personal history of other benign neoplasm, Z87.42 - Personal history of other diseases of the female genital tract US pelvic and transvaginal Today N95.1 - Menopausal and female climacteric states, Z01.419 - Encounter for gynecological examination (general) (routine) without abnormal findings, Z12.4 - Encounter for screening for malignant neoplasm of cervix, Z86.018 - Personal history of other benign neoplasm, Z87.42 - Personal history of other diseases of the female genital tract Pap Smear Today Z01.419 - Encounter for gynecological examination (general) (routine) without abnormal findings Coding Level of Care Code New Pt Prev Care 40-64y(03759) Diagnoses Screening for cervical cancer Z12.4 History of irregular menstrual cycles Z87.42 History of uterine fibroid Z86.018 Perimenopause N95.1 Well woman exam with routine gynecological exam Z01.419
== END 2023-09-24 14:20 | disposition home or self-care (01) ==
LOC: HO.HWS 13:11
PROVIDERS: PCP Family Medicine; Visit Provider Advanced Practice Midwife
DX: Z01.419 Encounter for gynecological examination (general) (routine) without abnormal findings (principal); Z12.4 Encounter for screening for malignant neoplasm of cervix; Z87.42 Personal history of other diseases of the female genital tract; Z86.018 Personal history of other benign neoplasm; N95.1 Menopausal and female climacteric states
CPT/HCPCS: 99386

== ENCOUNTER 2023-09-24 13:11 | Outpatient (REF) | payer OTHER, SELFPAY ==
[2023-09-25 02:15] LABS: CT PCR NOT DETECTED (Not Detect.); NG PCR NOT DETECTED (Not Detect.)
[2023-09-25 11:07] LABS: BV Int Neg Control Negative (Negative); BV Int Pos Control Positive (Positive)
[2023-10-05 03:44] LABS: HPV mRNA E6/E7 rflx Not Detected (Not Detected)
== END 2023-09-24 13:12 | disposition home or self-care (01) ==
LOC: HO.LAB 13:11
PROVIDERS: PCP Family Medicine; Visit Provider Advanced Practice Midwife
DX: Z01.419 Encounter for gynecological examination (general) (routine) without abnormal findings (principal); N95.1 Menopausal and female climacteric states; Z86.018 Personal history of other benign neoplasm; Z87.42 Personal history of other diseases of the female genital tract; Z79.899 Other long term (current) drug therapy; Z20.2 Contact with and (suspected) exposure to infections with a predominantly sexual mode of transmission
CPT/HCPCS: 0353U; 36415; 87480; 87491; 87510; 87591; 87624; 87660; 87661; 88142; 99386

== ENCOUNTER 2023-10-15 16:00 | Outpatient (RCR) | payer OTHER, SELFPAY ==
--- NOTE | 2023-09-03 18:05 | MHC.PT.EP ---
[facility] Office [place] Office [place] Office [address] [phone] F: [phone] F: [phone] F: [phone] F: [phone] Physical Therapy Plan of Care Date of Evaluation: 09/03/23 Date of Surgery: Diagnosis: Achilles tendonitis R leg, other enthesopathy of R foot and ankle. 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 Pt is deemed an appropriate condidate ot receive skilled PT services to address her physical impairments in order to improve her functional ability. Frequency and Duration: The patient will be seen 2 x/ wk x 5 wks. Short Term Goals: initiate home program. Improve R AT pain from 3-7/10 to at most 0-4/10. Improve R ankle DF AROM to at least > 15 degrees; initial: 10 deg. Monitoring Coordinator Goals: I with home program. Pt will be able to walk a mile with at most a little bit of difficulty; initial: quite a bit of difficulty. Improve LEFI outcome measure by at least 9 points. Pt will report able to traverse uneven terrain at work with managed Sx. Treatment Plan: Modalities to reduce pain, spasms and effusion. Manual therapy to restore motion and function. Therapeutic exercise to improve strength and flexibility. Neuromuscular re-education for posture and balance. Therapeutic activities to return to functional activities of daily living. Electronically signed by: Alan Orellana PT. Please sign and return to therapist. Thank you for your referral.
--- NOTE | 2023-11-26 16:20 | MHC.PT.DC ---
[facility] [place] Office [place] Office [place] Office [address] Hattie Bustillos [address] [phone] F: [phone] F: [phone] F: [phone] F: [phone] Physical Therapy Discharge Report Diagnosis: Achilles tendonitis R leg, other enthesopathy of R foot and ankle. Date of Surgery: Date of Evaluation: 09/03/23 Date of Discharge: 11/26/23 Treatments to Date: 5 Cancellations to Date: 1 No Shows to Date: 3 Discharge Status: Visit Non-compliance Discharge Summary: Pt continues to be motivated to participate. She continues to present with decreased intrisinc strength throughout feet with difficulty isolating toe movements. Initiated 4-way ankle and continued standing balance and stability exercises and pt tolerated well. Provided pt with printed, updated HEP to include 4-way ankle. No adverse reaction to PT this date. Continue to progress per pt tolerance Electronically signed by: Alan Orellana PT. Please sign and return to therapist. Thank you for your referral.
== END 2023-11-26 16:18 | disposition home or self-care (01) ==
LOC: HO.PT 16:00
PROVIDERS: PCP Family Medicine; Visit Provider Physician Assistant
DX: M76.61 Achilles tendinitis, right leg (principal); M77.51 Other enthesopathy of right foot and ankle
CPT/HCPCS: 97110; 97112; 97161

== ENCOUNTER 2024-01-07 15:33 | Outpatient (AMB) | payer OTHER, SELFPAY ==
[2024-01-07 15:34] VITALS: BP 110/74; PULSE 83; BMI 37.7
--- NOTE | 2024-01-07 15:34 | A.OFFVIS_ITS ---
Vital Signs 01/07/24 15:34 Height 5 ft 1 in Weight 199 lb 8.293 oz BMI 37.7 BP 110/74 Blood Pressure Location Lt brachial Position Sitting Pulse 83 Pulse Source Pulse Oximeter Intake Visit Reasons: f/u obesity-confirmed Intake Note: Patient presents today for Obesity follow up visit. Crematory Operator Required: No Accompanied by: Self / Same As Patient Allergies medical tape Adverse Reaction (Intermediate, Uncoded 01/07/24 15:38) Blister Medication List - Last Reconciled 01/07/24 by Arnol Hernández MD melatonin 5 mg PO BEDTIME PRN meloxicam 15 mg PO DAILY 30 days semaglutide (weight loss) (Wegovy) 0.25 mg (0.5 mL) subcut QWEEK HPI Comments Details: This is a 46-year-old female referred to endocrinology for obesity. Pt states weight gain gradual inability to lose wt. . She has used Noom and plateued , wt watchers. diets. Has tried no wt loss meds.Not seen groundwater consultant in past 5 yrs. She denies hx of sleep apnea. Denies sx of Epi's Syndrome Menses less frqently without hot flashes . No hx of thyroid problems . Does not want bariatric surgery . She did see groundwater consultant . 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 There is no clear endocrine etiology behind the patient's obesity. Plan is to attempt to have the patient start the Wegovy 0.25 mg and titrate as tolerated Medications: Refilled semaglutide (weight loss) (Wegovy) administer weeks 1 through 4 of therapy 0.25 mg (0.5 mL) subcut QWEEK 2 mL 4RF E66.9 - Obesity, unspecified Coding Level of Care Code Est Pt Level 3 (90190) Diagnoses Obesity E66.9
== END 2024-01-07 16:09 | disposition home or self-care (01) ==
PROVIDERS: PCP Family Medicine; Visit Provider Internal Medicine Endocrinology, Diabetes & Metabolism
DX: E66.9 Obesity, unspecified (principal)
CPT/HCPCS: 99213

== ENCOUNTER → 2024-01-07 15:33 | Outpatient (BNVA) | payer OTHER, SELFPAY | PROVIDERS: Visit Provider Internal Medicine Endocrinology, Diabetes & Metabolism | DX: E66.9 Obesity, unspecified (principal); Z68.37 Body mass index [BMI] 37.0-37.9, adult | CPT/HCPCS: 99212 ==

== ENCOUNTER 2024-05-07 15:43 | Outpatient (AMB) | payer OTHER, SELFPAY ==
--- NOTE | 2024-05-07 15:45 | A.OFFVIS_ITS ---
Vital Signs 05/07/24 15:55 Height 5 ft 1 in Weight 188 lb 11.451 oz BMI 35.7 BP 110/66 Blood Pressure Location Rt brachial Position Sitting Pulse 88 Pulse Source Pulse Oximeter Intake Visit Reasons: f/u obesity-lvm Intake Note: Patient present today for Obesity follow up. Customer Data Technician Required: No Accompanied by: Self / Same As Patient Allergies medical tape Adverse Reaction (Intermediate, Uncoded 05/07/24 15:48) Blister Medication List - Last Reconciled 05/07/24 by Arnol Hernández MD melatonin 5 mg PO BEDTIME PRN meloxicam 15 mg PO DAILY 30 days semaglutide (weight loss) (Wegovy) 1.7 mg (0.75 mL) subcut QWEEK HPI Comments Details: This is a 46-year-old female referred to endocrinology for obesity. Pt states weight gain gradual inability to lose wt. . She has used Noom and plateued , wt watchers. diets. Has tried no wt loss meds.Not seen head up operator helper in past 5 yrs. She denies hx of sleep apnea. Denies sx of Epi's Syndrome Menses less frqently without hot flashes . No hx of thyroid problems . Does not want bariatric surgery . She did see head up operator helper . Currently on Wegovy 1.7 mg Qwkly . 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 There is no clear endocrine etiology behind the patient's obesity. Plan is to continue the Wegovy and titrate as tolerated. Patient is changing jobs and insurance and her future [employer] plan may cover iZepbound and we could switch that if covered Coding Level of Care Code Est Pt Level 3 (96541) Diagnoses Obesity E66.9
[2024-05-07 15:55] VITALS: BP 110/66; PULSE 88; BMI 35.7
== END 2024-05-07 16:23 | disposition home or self-care (01) ==
PROVIDERS: PCP Family Medicine; Visit Provider Internal Medicine Endocrinology, Diabetes & Metabolism
DX: E66.9 Obesity, unspecified (principal)
CPT/HCPCS: 99213

== ENCOUNTER → 2024-05-07 15:43 | Outpatient (BNVA) | payer OTHER, SELFPAY | PROVIDERS: PCP Family Medicine; Visit Provider Internal Medicine Endocrinology, Diabetes & Metabolism | DX: E66.9 Obesity, unspecified (principal); Z68.35 Body mass index [BMI] 35.0-35.9, adult | CPT/HCPCS: 99212 ==

== ENCOUNTER 2024-09-07 09:09 | Outpatient (AMB) | payer OTHER, SELFPAY ==
[2024-09-07 09:10] VITALS: BP 102/70; PULSE 86; BMI 35.9
--- NOTE | 2024-09-07 09:10 | A.OFFVIS_ITS ---
Vital Signs 09/07/24 09:10 Height 5 ft 1 in Weight 190 lb 1.999 oz BMI 35.9 BP 102/70 Blood Pressure Location Rt brachial Position Sitting Pulse 86 Pulse Source Pulse Oximeter Intake Visit Reasons: f/u obesity Intake Note: Patient present today for Obesity follow up. Vegetable Cook Required: No Accompanied by: Self / Same As Patient Allergies medical tape Adverse Reaction (Intermediate, Uncoded 09/07/24 09:13) Blister Medication List - Last Reconciled 09/07/24 by Arnol Hernández MD melatonin 5 mg PO BEDTIME PRN meloxicam 15 mg PO DAILY 30 days tirzepatide (weight loss) (Zepbound) 2.5 mg (0.5 mL) subcut QWEEK HPI Comments Details: This is a 46-year-old female referred to endocrinology for obesity. Pt states weight gain gradual inability to lose wt. . She has used Noom and plateued , wt watchers. diets. Has tried no wt loss meds.Not seen correctional maintenance technician in past 5 yrs. She denies hx of sleep apnea. Denies sx of [place]'s Syndrome Menses less frqently without hot flashes . No hx of thyroid problems . Does not want bariatric surgery . She did see correctional maintenance technician . Currently on Zepbound 2.5 mg Qwkly for 2 wks . 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 There is no clear endocrine etiology behind the patient's obesity. She is currently on Zepbound 2.5 mg Q weekly Plan is to continue the Zepbound 2.5 mg and titrate accordingly. We will also have patient follow up with correctional maintenance technician here Orders: Referrals Nutrition/Dietitian Referral E66.9 - Obesity, unspecified Coding Level of Care Code Est Pt Level 3 (21427) Diagnoses Obesity E66.9
== END 2024-09-07 09:34 | disposition home or self-care (01) ==
PROVIDERS: PCP Family Medicine; Visit Provider Internal Medicine Endocrinology, Diabetes & Metabolism
DX: E66.9 Obesity, unspecified (principal)
CPT/HCPCS: 99213

== ENCOUNTER → 2024-09-07 09:09 | Outpatient (BNVA) | payer OTHER, SELFPAY | PROVIDERS: PCP Family Medicine; Visit Provider Internal Medicine Endocrinology, Diabetes & Metabolism | DX: E66.9 Obesity, unspecified (principal); Z68.35 Body mass index [BMI] 35.0-35.9, adult | CPT/HCPCS: 99212 ==

== ENCOUNTER 2024-10-05 09:14 | Outpatient (AMB) | payer OTHER, SELFPAY ==
--- NOTE | 2024-10-05 09:19 | AM.OFFWIN_ITS ---
Intake Vital Signs 10/05/24 09:20 Weight 192 lb BP 112/70 Blood Pressure Location Rt brachial Position Sitting Pulse 79 Pulse Source Pulse Oximeter Temp 98.5 F Temp Source Oral Pulse Oximetry (%) 99 Oxygen Delivery Method Room Air Intake Visit Reasons: EP Work physical Intake Note: Patient here to have work physical. Patient Tobacco Use Status: Never used Tobacco Allergies Sulfa (Sulfonamide Antibiotics) Adverse Reaction (Mild, Verified 10/05/24 09:21) sun sensitivity medical tape Adverse Reaction (Intermediate, Uncoded 10/05/24 09:20) Blister Do you need a note to return to daycare/school/sports/work: No HPI HPI Comments History of Present Illness Details 48 y/o female patient who presents to [facility] for a Work physical. Denies any chronic medical conditions. Denies any major surgeries. 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 [place] Current occupational exposures/hazards: No Cognitive needs: No Hearing needs: No Vision needs: Yes Female Reproductive History Menstrual Age of Menarche: 13 Review of Systems Const All systems reviewed & are unremarkable except as noted in HPI and below Physical Exam Vital Signs: Last Vital Signs Temp 98.5 F 10/05/24 09:20 Pulse 79 10/05/24 09:20 BP 112/70 10/05/24 09:20 Pulse Ox 99 10/05/24 09:20 Oxygen Delivery Method Room Air 10/05/24 09:20 Const General: cooperative, comfortable and no acute distress Nutritional Appearance: obese Orientation/consciousness: patient oriented x3 HEENT Head: Yes normocephalic Ears: external ears normal, TM's normal bilaterally and TM abnormal bulging bilateral and with fluid behind the TM bilateral General nose exam: Abnormal mucous membranes and turbinates present boggy and er ythematous Face and sinus: Yes normal facial exam and Yes sinuses nontender Mouth: moist mucous membranes Throat: Yes uvula midline Eyes Eyelids: Yes eyelids normal Corneas: corneas normal Pupils: Equal, round and reactive pupils present EOM: EOMs intact bilaterally Neck Neck: Yes no lymphadenopathy, Yes trachea midline and Yes no JVD Thyroid: Thyroid normal Resp Effort & Inspection: normal respiratory effort, able to speak in complete sentences, no audible wheezes and no cough Auscultation: clear to auscultation bilaterally, no crackles, no rales, no rhonchi and no wheezes Cardio Heart sounds: S1 normal heart sound present and S2 normal heart sound present Bruits: no abdominal aortic bruits GI Inspection: Yes normal to inspection Palpation (GI): No Abdominal aortic bruit present, Soft to palpation, not firm, nontender, no guarding, No hepatosplenomegaly present and no hernias Auscultation: normal bowel sounds General: Yes no CVA tenderness Back/Spine/Pelvis Back: no CVA tenderness and back tenderness Cervical Spine: cervical ROM normal Thoracic/Lumbar Spine: thoraco-lumbar ROM normal Skin General skin exam: no rashes or lesions noted Neuro General: patient oriented x3, gait normal and moves all extremities Cranial nerves: Yes Equal, round and reactive pupils present Motor exam (neuro): 5/5 motor strength present throughout Extrem General: Yes normal to inspection and Yes full ROM Psych Speech and movement: Normal speech and movement present Assessment & Plan Assessment & Plan (1) Encounter for physical examination: Code(s): Z00.00 - Encounter for general adult medical examination without abnormal findings Plan: Advised Patient that Today's Exam is Abbreviated physical examination. Examination WNL. Coding Level of Care Code Est Pt Level 4 (30348) Diagnoses Encounter for physical examination Z00.00 Time Spent (min) 20
[2024-10-05 09:20] VITALS: BP 112/70; PULSE 79; TEMP 36.9; O2SAT 99
== END 2024-10-05 09:41 | disposition home or self-care (01) ==
PROVIDERS: PCP Family Medicine; Visit Provider Nurse Practitioner Family
DX: Z00.00 Encounter for general adult medical examination without abnormal findings (principal)

== ENCOUNTER → 2024-10-05 09:14 | Outpatient (BNVA) | payer OTHER, SELFPAY | PROVIDERS: PCP Family Medicine | DX: Z02.1 Encounter for pre-employment examination (principal) | CPT/HCPCS: 99396 ==

== ENCOUNTER 2024-10-12 12:29 | Outpatient (AMB) | payer OTHER, SELFPAY ==
--- NOTE | 2024-10-12 12:37 | A.OFFVIS_ITS ---
VS Expanded 10/12/24 12:51 10/22/24 11:19 Height 5 ft 1 in 5 ft 1 in Weight 190 lb 7.67 oz 190 lb BMI 36.0 35.9 Intake Visit Reasons: Obesity, unspecified/Confirmed Allergies Sulfa (Sulfonamide Antibiotics) Adverse Reaction (Mild, Verified 10/05/24 09:21) sun sensitivity medical tape Adverse Reaction (Intermediate, Uncoded 10/05/24 09:20) Blister Nutrition Presentation Details: Pt presents for MNT f/u for obesity Food frequency fruits: 0-1/d ve servings/d dairy > 4 serving/d starches > 28 serving/d protein: poultry/fish/eggs beverages: water/tea, diluted juices etoh/smokin- physical activity ADL BS Monitoring Most Recent Diabetes Results: No Data to Display WJH-Dtkbqge-Fv.Jeor Equation Height: 5 ft 1 in Weight: 190 lb Resting Metabolic Rate: 1427.26 Calculated Activity Level: Sedentary Calories Needed to Maintain Weight: 1712.71 [facility] Medical History Ladarius's deformity of right heel Right ankle tendonitis Surgical History Hx of cholecystectomy Hx of section Family History Mother Lung cancer Father Diabetes Heart disease Social History Household Members: Spouse and Children Housing: Apartment Alcohol intake: current Patient Tobacco Use Status: Never used Tobacco e-Cigarette/Vaping Use: Never Used service: No Current occupational status: employed 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 Used wt : 86 kg (10/27) Est kcal as per MSJ: 1700 (40% carb, 30% fat/prot) Est fluid needs: 2200 ml/d (30 ml/kg bw) Rec fiber: increase to 8-10 g per day and gradually increase to 25 g/d or as tolerated Rec Na: < 2000 mg /d Educate patient on: (R= Reviewed, V = verbalizes understanding N/R= Needs review N/A= not applicable) * Food sources of carbohydrates and serving adequate serving sizes : R , V * Difference between complex carbohydrates and simple carbohydrates, role of fiber: R, V * Differences between fats (MUFA/PUFA/saturated fats, trans fats) and food sources of various fats: NR * Food sources of sodium and salt and healthy modifications for heart health and kidney health: R N/R * Vitamins and minerals: N/R * How to interpret food labels: N/R * Healthy Plate method concept: R V * Caloric content of foods: R * Physical activity: benefits and precaution: R V * mindful eating strategies R Medications: Discontinued tirzepatide (weight loss) for 4 weeks Discontinued Reason: Doctor's Order 2.5 mg (0.5 mL) subcut QWEEK 2 mL 2RF Patient Instructions: Measure food portions, Keep track of calorie - phone romel ok aim at [phone] engage in physical activity , start with 10 min and gradually increase to 30 minutes 3x/wk Coding Level of Care Code Nutr Indiv Subseq (94947) Diagnoses Obesity E66.9 Time Spent (min) 30
[2024-10-12 12:51] VITALS: BMI 36.0
[2024-10-22 11:19] VITALS: BMI 35.9
== END 2024-10-12 13:14 | disposition home or self-care (01) ==
PROVIDERS: PCP Family Medicine; Visit Provider Dietitian, Registered
DX: E66.9 Obesity, unspecified (principal)

== ENCOUNTER → 2024-10-12 12:29 | Outpatient (BNVA) | payer OTHER, SELFPAY | PROVIDERS: PCP Family Medicine; Visit Provider Dietitian, Registered | DX: E66.9 Obesity, unspecified (principal); Z68.36 Body mass index [BMI] 36.0-36.9, adult | CPT/HCPCS: 97803 ==

== ENCOUNTER 2025-02-01 15:57 | Outpatient (AMB) | payer OTHER, SELFPAY ==
[2025-02-01 16:06] VITALS: BP 114/70; PULSE 85; O2SAT 98; BMI 35.0
--- NOTE | 2025-02-01 16:06 | A.OFFVIS_ITS ---
Vital Signs 02/01/25 16:06 Height 5 ft 1 in Weight 185 lb 3.013 oz BMI 35.0 BP 114/70 Blood Pressure Location Rt brachial Position Sitting Pulse 85 Pulse Source Pulse Oximeter Pulse Oximetry (%) 98 Oxygen Delivery Method Room Air Intake Visit Reasons: obesity Intake Note: Patient present today for Obesity follow up. 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 Pt states weight gain gradual inability to lose wt. . She has used Noom and plateued , wt watchers. diets. Has tried no wt loss meds.Not seen terminal worker in past 5 yrs. She denies hx of sleep apnea. Denies sx of [place]'s Syndrome Menses less frqently without hot flashes . No hx of thyroid problems . Does not want bariatric surgery . She did see terminal worker . Was on Zepbound 2.5 mg Qwkly for 2 wks . Experiencing less nausea on the Zepbound . Zepbound was denied by insurance company The patient is a 49-year-old female presenting with challenges in obtaining weight loss medication through insurance. Initially, she was approved for a 5 mg dose of the medication through her previous insurance. Following a switch to [employer], prior authorization for the medication was denied, reflecting a policy shift by the insurer to restrict weight loss medications under their pharmacy benefit management. The patient experienced multiple unsuccessful attempts to secure authorization, facing similar policies as those applied by Medicare and Medicaid. In response to ongoing issues, the patient explored opting for [employer] vial and syringe program as an alternative, which presents a consistent financial burden per month. The patient is concerned about possible weight gain incidents due to increased appetite since stopping the medication. A systematic reevaluation with the insurance is planned, alongside collaborative efforts to maintain eligibility documentation for future authorization requests. 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 There is no clear endocrine etiology behind the patient's obesity. She was on Zepbound 2.5 mg Q weekly. The 5 mg dose was denied by insurance 1. Overweight The patient's challenge with overweight management persists due to restricted access to required medication under her insurance. We deliberated using [employer] pablo pay alternative as an immediate route with ongoing consideration of the insurer's policy changes. 2. Insurance denial of medication Insurance denial due to current policy concerned similar criteria to broader Medicare restrictions. The patient should diligently pursue insurance mandates and possibly reiterate appeals with additional documentation in support of medication necessity. [employer] pablo pay alternative remains under consideration per her discretion regarding cost and need. The patient had an opportunity to ask questions regarding treatment plan. The patient expressed understanding and agreement with the above treatment plan. Patient was informed and verbally consented to the use of an ambient scribe for clinic note documentation during this visit. Coding Level of Care Code Est Pt Level 3 (87796) Diagnoses Obesity E66.9
== END 2025-02-01 16:23 | disposition home or self-care (01) ==
LOC: HO.ENCR 15:58
PROVIDERS: PCP Family Medicine; Visit Provider Internal Medicine Endocrinology, Diabetes & Metabolism
DX: E66.9 Obesity, unspecified (principal)
CPT/HCPCS: 99213

== ENCOUNTER 2025-02-09 08:30 | Outpatient (AMB) | payer OTHER, SELFPAY ==
--- NOTE | 2025-02-09 08:36 | A.OFFVIS_ITS ---
VS Expanded 02/09/25 08:40 02/09/25 09:23 Height 5 ft 1 in 5 ft 1 in Weight 186 lb 8.177 oz 187 lb BMI 35.2 35.3 Intake Visit Reasons: Obesity Allergies Sulfa (Sulfonamide Antibiotics) Adverse Reaction (Mild, Verified 02/01/25 16:07) sun sensitivity medical tape Adverse Reaction (Intermediate, Uncoded 02/01/25 16:07) Blister Nutrition Presentation Details: Pt presents for MNT f/u for obesity Pt reports working on having 2- 3 meals/day and 1-2 snacks working on following healthy plate method challenges: increased appetite for sweets. Reports these cravings had subsided when on Wegovy in the past, however currently d/t change in health insurance the med is not covered and needs to re apply Typical meal 1 scoop of collagen in black coffee with 1/2 tbsp honey 12-1 pm lunch chicken salad or harvey egg cheese with coffee , sometimes has a donut snack granola bar or cottage cheese dinner: baked potato/chicken and broccoli Planning to start [employer] [facility]NE weight loss program etoh- denies physical activity ADL BS Monitoring Most Recent Diabetes Results: No Data to Display VCV-Ljojstc-Sh.Jeor Equation Height: 5 ft 1 in Weight: 187 lb Resting Metabolic Rate: 1413.66 Calculated Activity Level: Sedentary Calories Needed to Maintain Weight: 1696.39 Diagnosis Nutrition problem #1: excessive energy intake As related to (etiology) #1: diagnosis As evidenced by (sign/symptom) #1: high BMI (35.2 01/2025 but with improvement as compared to 40.9 on 10/2022) PFSH Medical History Ladarius's deformity of right heel Right ankle tendonitis Surgical History Hx of cholecystectomy Hx of section Family History Mother Lung cancer Father Diabetes Heart disease Social History Household Members: Spouse and Children Housing: Apartment Alcohol intake: current Patient Tobacco Use Status: Never used Tobacco e-Cigarette/Vaping Use: Never Used service: No Current occupational status: employed 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 Used wt : 86 kg (10/27), 85 kg (02/24) Est kcal as per MSJ: 1700 (40% carb, 30% fat/prot) Est fluid needs: 2200 ml/d (30 ml/kg bw) Rec fiber: increase to 8-10 g per day and gradually increase to 25 g/d or as tolerated Rec Na: < 2000 mg /d Educate patient on: (R= Reviewed, V = verbalizes understanding N/R= Needs review N/A= not applicable) * Food sources of carbohydrates and serving adequate serving sizes : R , V * Difference between complex carbohydrates and simple carbohydrates, role of fiber: R, V * Differences between fats (MUFA/PUFA/saturated fats, trans fats) and food sources of various fats: R * Food sources of sodium and salt and healthy modifications for heart health and kidney health: R N/R * Vitamins and minerals, amino acids : R * How to interpret food labels: N/R * Healthy Plate method concept: R V * Caloric content of foods: R * Physical activity: benefits and precaution: R V * mindful eating strategies R Patient Instructions: Continue working on following health plate method at least 2 meals/day Have a meal replacement once a day (Bettermentlife protein shake as example) Reduce snack in between meals to less than 20 g carb with a lean protein Include 10 minutes of physical activity and gradually increase to 30 minutes at least 3 times a week Coding Level of Care Code Nutr Indiv Subseq (08260) Diagnoses Obesity E66.9 Time Spent (min) 30
[2025-02-09 08:40] VITALS: BMI 35.2
[2025-02-09 09:23] VITALS: BMI 35.3
== END 2025-02-09 09:12 | disposition home or self-care (01) ==
LOC: HO.ENCR 08:31
PROVIDERS: PCP Family Medicine; Visit Provider Dietitian, Registered
DX: E66.9 Obesity, unspecified (principal)

== ENCOUNTER → 2025-02-09 08:30 | Outpatient (BNVA) | payer OTHER, SELFPAY | PROVIDERS: PCP Family Medicine; Visit Provider Dietitian, Registered | DX: E66.9 Obesity, unspecified (principal) | CPT/HCPCS: 97803 ==

== ENCOUNTER 2025-06-07 15:59 | Outpatient (AMB) | payer OTHER, SELFPAY ==
--- NOTE | 2025-06-07 16:02 | A.OFFVIS_ITS ---
Vital Signs 06/07/25 16:06 Height 5 ft 1 in Weight 207 lb 10.807 oz BMI 39.2 BP 102/74 Blood Pressure Location Lt brachial Position Sitting Pulse 87 Pulse Source Pulse Oximeter Pulse Oximetry (%) 96 Oxygen Delivery Method Room Air Intake Visit Reasons: f/u obesity Intake Note: Patient present today for Obesity follow up. 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 Pt states weight gain gradual inability to lose wt. . She has used Noom and plateued , wt watchers. diets. Has tried no wt loss meds.Not seen nutr itionist in past 5 yrs. She denies hx of sleep apnea. Denies sx of Epi's Syndrome Menses less frqently without hot flashes . No hx of thyroid problems . Does not want bariatric surgery . She did see adobe layer . Zepbound was denied by the patient's insurance and she was told she had engage in weight loss program by [employer] which she did. 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 There is no clear endocrine etiology behind the patient's obesity. She was on Zepbound 2.5 mg Q weekly. The 5 mg dose was denied by insurance. Currently not on any weight loss medications Plan is to attempt to represcribed Zepbound 2.5 mg Q weekly now the patient is engaged in a structured healthy Linda weight loss program. Did go over the pablo pay program from [employer] for Zepbound the patient can not afford this. Medications: New tirzepatide (weight loss) (Zepbound) for 4 weeks 2.5 mg (0.5 mL) subcut QWEEK 2 mL 5RF Discontinued tirzepatide (weight loss) (Zepbound) Discontinued Reason: Doctor's Order 5 mg (0.5 mL) subcut QWEEK 2 mL 4RF Coding Level of Care Code Est Pt Level 3 (83244) Diagnoses Obesity E66.9
[2025-06-07 16:06] VITALS: BP 102/74; PULSE 87; O2SAT 96; BMI 39.2
--- OUTSIDE RECORDS SUMMARY | 2025-06-07 18:18 | XMS_ITS | Continuity of Care Document ---
Author Organization [facility] Address [address] [place] [address] Insurance Providers Payer Plan Claims Address Claims Phone Policy Number Group Number Relation Employer Guarantor Name Guarantor Guarantor Address Guarantor Phone Carey daley [employer] ce Zak ense [employer] n Allia nce [id number] [employer] ACO [address] [address], [place] [address] tel:[phone] [facility] [phone] Self Celi Bardales [address] [place] [id number] Problems Condition ICD9 code ICD10 code SNOMED code Start Date End Date S tatus Encounter for screening for other metabolic disorders Z13.228 Results No Results Allergies, adverse reactions, alerts No known allergies and adverse reactions Medications No administered medications reported Vital Signs No vital signs reported Social History No smoking Hx information available
--- OUTSIDE RECORDS SUMMARY | 2025-06-07 18:18 | XMS_ITS | Clinical Summary ---
Author Organization Formerly [facility] Address [address] [place] [address] Phone Care Team Providers Care Embedded Firmware Engineer Name Role Phone Jaqueline Jones CARL Primary Care Provider Allergies Active Allergy Reactions Criticality Noted Date Comments Adhesive 08/16/2022 medical tape Sulfa (Sulfonamide Antibiotics) 08/02 Medications No known medications Immunizations No known immunizations Social History Tobacco Use Types Packs/Day Years Used Date Smoking Tobacco: Never Smokeless Tobacco: Never Tobacco Cessation:Counseling Given: Not Answered Education Answer Date Recorded Are you interested in more education? Not on melita e 12/27/2022 Are you concerned about learning? Not on file 12/27/2022 No 12/27/2022 No 12/27/2022 Digital Access Answer Date Recorded No 01/27/2023 No 01/27/2023 No 01/27/2023 Reliable internet access at home? Not on file 01/27/2023 Device with a working camera? Not on file Comments Unknown Sex and Gender Information Value Date Recorded Sex Assigned at Not on file Legal Sex Female 9:02 AM EST Gender Identity Not on file Sexual Orientation Not on file Last Filed Vital Signs Vital Sign Reading Time Taken Comments Blood Pressure 108/74 12/27/2022 1:35 PM EDT Pulse 97 12/27/2022 1:35 PM EDT Temperature 37.2 C (99 F) 12/27/2022 1:35 PM EDT Respiratory Rate 18 12/27/2022 1:35 PM EDT Oxygen Saturation 100% 12/27/2022 1:35 PM EDT Inhaled Oxygen Concentration - - Weight 90.7 kg (200 lb) 12/27/2022 1:35 PM EDT p er pt Height - - Body Mass Index - - Plan of Treatment Health Maintenance Due Date Last Done Comments Adult Td,Tdap Booster 1975 LIPID PANEL 1975 DEPRESSION SCREENING 1987 HEPATITIS C SCREENING 1993 HIV ONE-TIME SCREENING (18-6 5 YEARS) 1993 PAP SMEAR 1996 MAMMOGRAM 2015 COLOGUARD 2020 COLONOSCOPY 2020 COLORECTAL CANCER SCREENING 2020 FIT TEST 2020 FOBT 2020 SIGMOIDOSCOPY 2020 VIRTUAL COLONOSCOPY 2020 INFLUENZA VACCINE (#1) 2025 , 08/31/2021 COVID-19 VACCINE (2024-2 6 season) 2025 07/30/2021, 01/11/2021, 12/13/2020 SMOKING STATUS SCREENING (On ce After 26 Yrs) Completed 12/27/2022 HEPATITIS A VACCINES Aged Out No long er eligible based on patient's age to complete this topic HIB VACCINES Aged Out No longer eligi ble based on patient's age to complete this topic MENINGOCOCCAL VACCINES (ACWY) Aged Out No longer eligible based on patient's age to complete this topic MENINGOCOCCAL VACCINES (B) Aged Out N o longer eligible based on patient's age to complete this topic PNEUMOCOCCAL VACCINES (0-49 years) Aged Out No longer eligible b ased on patient's age to complete this topic Medical Devices Not on file Insurance [facility] [place] [address] [place] [address] ACO [facility] A[facility] Care Teams Embedded Firmware Engineer Relationship Specialty Start Date End Date Jaqueline Jones NP PCP - General Nurse Practitioner 12/27/22 Additional Source Comments The information contained in this document represents components of the legal health record. It is not the complete legal health record.Formerly [facility]
--- OUTSIDE RECORDS SUMMARY | 2025-06-07 18:18 | XMS_ITS | Continuity of Care Document ---
Author Organization [facility] Address [address] [place] [address] Insurance Providers Payer Plan Claims Address Claims Phone Policy Number Group Number Relation Employer Guarantor Name Guarantor Guarantor Address Guarantor Phone Carey daley [employer] Zak ense [employer] Allia nce [id number] [employer] [address] [address], [place] [address] tel:[phone] [phone] Self Celi Bardales [address] [place] [id number] Problems Condition ICD9 code ICD10 code SNOMED code Start Date End Date S tatus Encounter for screening for other metabolic disorders Z13.228 Results No Results Allergies, adverse reactions, alerts No known allergies and adverse reactions Medications No administered medications reported Vital Signs No vital signs reported Social History No smoking Hx information available
== END 2025-06-07 16:26 | disposition home or self-care (01) ==
LOC: HO.ENCR 16:00
PROVIDERS: PCP Family Medicine; Visit Provider Internal Medicine Endocrinology, Diabetes & Metabolism
DX: E66.9 Obesity, unspecified (principal)
CPT/HCPCS: 99213